=== PATIENT | female | born 1990 | race Two or more races ===

== ENCOUNTER 2018-11-16 16:46 | Inpatient (IN) | payer BC ==
--- NOTE | 2018-11-16 18:03 | US ---
EXAMINATION TYPE: US OB limited DATE OF EXAM: 11/16/2018 COMPARISON: NONE CLINICAL HISTORY: ROLAND level. ROLAND EXAM PERFORMED: Transabdominal (TA) No growth performed on today?s study per ordering physician ROLAND: 8.6 cm Normal HEART RATE: 154 bpm RHYTHM: Normal IMPRESSION: Amniotic Fluid index is within normal limits.
[2018-11-16 18:23] VITALS: BMI 25.3
[2018-11-17] MEDS ORDERED: CARBOPROST TROMETHAMINE 250 MCG/ML 1 ML AMP IM PRN (00:12)
[2018-11-17] MEDS ORDERED: LIDOCAINE 0.5% (PF) 5 MG/ML (50 ML SDV) SQ PRN (00:12)
[2018-11-17] MEDS ORDERED: OXYTOCIN 10 UNIT/ML 1 ML VIAL IM PRN (00:12)
[2018-11-17] MEDS ORDERED: TERBUTALINE 1 MG/ML VIAL SQ PRN (00:12)
[2018-11-17] MEDS ORDERED: METHYLERGONOVINE 0.2 MG/ML 1 ML AMP IM PRN (00:12)
[2018-11-17 01:03] LABS: Basophils % (A) 0 %; Eosinophils # (A) 0.1 k/uL (0-0.7); Eosinophils % (A) 1 %; HCT 42.1 % (34.0-46.0); HGB 14.1 gm/dL (11.4-16.0); Lymphocytes # (A) 1.8 k/uL (1.0-4.8); Lymphocytes % (A) 19 %; MCH 29.8 pg (25.0-35.0); MCHC 33.4 g/dL (31.0-37.0); MCV 89.3 fL (80.0-100.0); Mean Platelet Volume 10.4; Monocytes # (A) 0.8 k/uL (0-1.0); Monocytes % (A) 9 %; Neutrophils # (A) 6.4 k/uL (1.3-7.7); Neutrophils % (A) 70 %; Platelet Count 160 k/uL (150-450); RBC 4.71 m/uL (3.80-5.40); RDW 13.5 % (11.5-15.5); WBC 9.2 k/uL (3.8-10.6)
[2018-11-17 01:36] LABS: Anisocytosis (M) Present; Large Platelets Present; Poikilocytosis (M) Present
[2018-11-17] MEDS: LACTATED RINGERS 1,000 ML IV SCH ×2 (05:47→16:06)
[2018-11-17] MEDS ORDERED: OXYTOCIN 30 UNITS/500 ML NS 30 UNIT in SALINE 1 500ML.BAG IV SCH (06:00)
[2018-11-17] MEDS ORDERED: ROPIVACAINE 5MG/ML 20ML VIAL ONE (13:20)
[2018-11-17] MEDS ORDERED: fentaNYL (PF) 50 MCG/ML 5 ML AMP ONE (13:20)
[2018-11-17] MEDS ORDERED: SODIUM CHLORIDE 0.9% 100 ML BAG ONE (13:20)
--- NOTE | 2018-11-17 18:45 | P.HPOB ---
History of Present Illness H&P Date: 11/16/18 Chief Complaint: Variable decelerations of the fetus on heart monitor 28-year-old presents at 40 weeks to my office for a routine exam. On the NST in the office the baseline was 135-140 with moderate variability but she did have 2 variable decelerations lasting about 20 seconds onto 90 with good return to baseline. Sent over to the hospital for an amniotic fluid index and prolonged monitoring. The ROLAND was 8.5 cm and she continued to have some speculum variables. She was kept overnight for monitoring and did have a 3 minute deceleration around 11 PM. Informed consent was obtained and induction of labor was started. Cervix was 3 cm dilated, 80% effaced, and -1 station. Review of Systems All systems: negative Constitutional: Denies chills, Denies fever Eyes: denies blurred vision, denies pain Ears, nose, mouth and throat: Denies headache, Denies sore throat Cardiovascular: Denies chest pain, Denies shortness of breath Respiratory: Denies cough Gastrointestinal: Denies abdominal pain, Denies diarrhea, Denies nausea, Denies vomiting Genitourinary: Denies dysuria, Denies hematuria Musculoskeletal: Denies myalgias Integumentary: Denies pruritus, Denies rash Neurological: Denies numbness, Denies weakness Psychiatric: Denies anxiety, Denies depression Endocrine: Denies fatigue, Denies weight change Past Medical History Past Medical History: No Reported History Additional Past Medical History / Comment(s): Obstetric history: This is her first and she's had care with me since 11 weeks gestation. Blood type O positive, and was negative, rubella immune, RPR nonreactive, hepatitis B negative, HIV nonreactive. Normal anatomy ultrasound, abnormal 1 hour but a normal three-hour GTT. GBS negative. History of Any Multi-Drug Resistant Organisms: None Reported Past Surgical History: No Surgical Hx Reported Past Anesthesia/Blood Transfusion Reactions: No Reported Reaction Past Psychological History: No Psychological Hx Reported Smoking Status: Never smoker - Past Family History Mother Family Medical History: Hyperlipidemia, Hypertension Medications and Allergies Home Medications Medication Instructions Recorded Confirmed Type No Known Home Medications 11/16/18 11/16/18 History Allergies Allergy/AdvReac Type Severity Reaction Status Date / Time No Known Allergies Allergy Verified 11/16/18 16:54 Exam Osteopathic Statement: *. No significant issues noted on an osteopathic structural exam other than those noted in the History and Physical/Consult. Intake and Output 11/17/18 11/17/18 11/17/18 06:59 14:59 22:59 Intake Total 1400 Balance 1400 Intake: Intake, IV Titration 1400 Amount Lactated Ringers 1,000 ml 1400 @ 125 mls/hr IV .Q8H [place] Rx#:[id number] Other: # Voids 2 Heart: Regular rate and rhythm Lungs: Clear to auscultation bilaterally Abdomen: Soft, nontender Extremities: Negative Homans sign Results Result Diagrams: 11/16/18 23:45 Assessment and Plan (1) Normal labor Current Visit: Yes Status: Acute Code(s): O80 - ENCOUNTER FOR FULL-TERM UNCOMPLICATED DELIVERY; Z37.9 - OUTCOME OF DELIVERY, UNSPECIFIED SNOMED Code(s ): 83226252 Plan: 1. Induction of labor with amniotomy and Pitocin 2. Anticipate normal vaginal delivery 3. Continuous monitoring
[2018-11-17] MEDS ORDERED: diphenhydrAMINE 25 MG CAP PO PRN (21:12)
[2018-11-17] MEDS ORDERED: SIMETHICONE 80 MG CHEWABLE PO PRN (21:12)
[2018-11-17] MEDS ORDERED: WITCH HAZEL 1 EACH MED..PAD TOPICAL PRN (21:12)
[2018-11-17] MEDS ORDERED: ZOLPIDEM 5 MG TAB PO PRN (21:12)
[2018-11-17] MEDS ORDERED: BENZOCAINE/MENTHOL SPRAY 1 GM/SPRAY AEROSOL TOPICAL PRN (21:12)
[2018-11-17] MEDS ORDERED: diphenhydrAMINE 50 MG CAP PO PRN (21:12)
[2018-11-17] MEDS ORDERED: ACETAMINOPHEN TAB 325 MG TAB PO PRN (21:12)
[2018-11-17] MEDS ORDERED: HYDROCORTISONE 2.5% RECTAL CREAM 30 GM TUBE RECTAL PRN (21:12)
[2018-11-17] MEDS ORDERED: diphenhydrAMINE 50 MG/ML 1 ML VIAL IVP PRN ×2 (21:12)
[2018-11-17] MEDS ORDERED: LANOLIN CREAM 5 GM TUBE TOPICAL PRN (21:12)
[2018-11-17] MEDS ORDERED: OXYTOCIN 20 UNITS/1000 ML NS 1,000 ML IV SCH (21:15)
[2018-11-18] MEDS: IBUPROFEN 600 MG TAB PO PRN ×2 (00:06→16:55)
[2018-11-18] MEDS: SENNOSIDES-DOCUSATE SODIUM 1 EACH TAB PO SCH ×2 (09:56→20:16)
[2018-11-18] MEDS: LACTATED RINGERS 1,000 ML IV SCH (21:02)
[2018-11-19] MEDS: IBUPROFEN 600 MG TAB PO PRN ×3 (00:14→19:33)
[2018-11-19] MEDS: SENNOSIDES-DOCUSATE SODIUM 1 EACH TAB PO SCH ×2 (11:40→21:40)
--- NOTE | 2018-11-19 11:44 | P.PROBDLV ---
Vaginal Delivery Note - . Vaginal Delivery Note: 28-year-old presented at 40 weeks for induction of labor. Her cervix was 37 m dilated, 70% effaced, and -1 station. She was carlos irregularly but not feeling them. heart tones 130-135 with moderate variability and reactive. Pitocin was started. Amniotomy was performed at 7:43 AM and clear fluid noted. When she was very uncomfortable she did get an epidural. Her cervix was completely dilated at 1926. She pushed, delivered a viable male over midline episiotomy under epidural anesthesia at 2052. Head delivered OA, nuchal cord 1 easily reduced, anterior shoulder delivered gentle downward guidance followed by posterior shoulder and rest of body. Nose and mouth bulb suctioned, cord clamped and cut, infant placed on mother's abdomen. Apgars 8, 9, weight 7 lbs. 1 oz. Placenta delivered spontaneously, intact with three-vessel cord at 2054. Vagina, cervix, and perineum were inspected. Second -degree midline episiotomy was repaired with 2-0 Vicryl and 3-0 Vicryl. Estimated blood loss 150 mL.
--- NOTE | 2018-11-19 11:45 | P.PNOBGVD ---
Subjective - Subjective Principal diagnosis: Status post normal vaginal delivery day #1 Interval history: Patient seen and examined. Denies nausea, vomiting, chest pain, shortness of breath or calf pain. She's having some difficulty with breast-feeding but using a nipple shield and doing better with this. Patient reports: Reports appetite normal, Reports voiding normally, Reports pain well controlled, Reports ambulating normally : doing well Objective - Latest Vital Signs Latest vital signs: Vital Signs Temp Pulse Resp BP Pulse Ox 11/19/18 08:00 98.4 F 86 18 116/80 99 11/19/18 00:00 97.9 F 81 16 115/83 11/18/18 20:00 98.0 F 68 16 120/80 11/18/18 16:00 98.3 F 78 18 111/70 99 11/18/18 12:00 98.4 F 78 18 112/78 Intake and Output 11/18/18 11/19/18 11/19/18 22:59 06:59 14:59 Other: # Voids 2 2 - Exam Lungs: bilateral: normal Chest: Normal S1, Normal S2 Extremities: Present: normal Abdomen: Present: normal appearance, soft Uterus: Present: normal, firm Assessment and Plan (1) Normal labor Current Visit: Yes Status: Resolved Code(s): O80 - ENCOUNTER FOR FULL-TERM UNCOMPLICATED DELIVERY; Z37.9 - OUTCOME OF DELIVERY, UNSPECIFIED SNOMED Code(s ): 21135080 (2) Status post normal vaginal delivery Current Visit: Yes Status: Acute Code(s): EFR5143 - SNOMED Code(s): 111739344 Plan: 1. Continue care
--- NOTE | 2018-11-19 11:47 | P.DS ---
Providers Date of admission: 11/17/18 00:12 Expected date of discharge: 11/19/18 Attending physician: Sandra Tiwari Primary care physician: Stated None - Discharge Diagnosis(es) (1) Normal labor Current Visit: Yes Status: Resolved (2) Status post normal vaginal delivery Current Visit: Yes Status: Acute Hospital Course: Patient presented for induction of labor after some variable decelerations in the office and in observation overnight. She underwent a normal vaginal delivery. Her course was uncomplicated. She will be discharged home post day #2 in stable condition to follow-up with me in 6 weeks. Plan - Discharge Summary New Discharge Prescriptions: New Ibuprofen [Motrin] 600 mg PO Q6HR PRN #30 tab PRN Reason: Mild Pain Or Fever >= 100.5 Sennosides-Docusate Sodium [Senokot-S] 2 each PO BID@799,1999 #40 tab Discharge Medication List Ibuprofen [Motrin] 600 mg PO Q6HR PRN #30 tab 11/19/18 [Rx] Sennosides-Docusate Sodium [Senokot-S] 2 each PO BID@ #40 tab 11/19/18 [Rx] Follow up Appointment(s)/Referral(s): Sandra Tiwari DO [Doctor of Osteopathic Medicine] - 6 Weeks Discharge Disposition: HOME SELF-CARE
[2018-11-19 17:30] VITALS: RESP 16
[2018-11-19 21:43] VITALS: BP 115/70; PULSE 78; TEMP 98
== END 2018-11-19 22:10 | disposition home or self-care (01) | DRG 807 ==
LOC: FBPOP 16:46 → 4FBP 17:56 → OBSVTOIN 11-17 00:12
PROVIDERS: ADMIT Obstetrics & Gynecology; ATTEND Obstetrics & Gynecology
PROC: 10E0XZZ Delivery of Products of Conception, External Approach (ICD-10-PCS; principal; 2018-11-17)
PROC: 0W8NXZZ Division of Female Perineum, External Approach (ICD-10-PCS; 2018-11-17)
PROC: 00HU33Z Insertion of Infusion Device into Spinal Canal, Percutaneous Approach (ICD-10-PCS; 2018-11-17)
PROC: 3E0R3BZ Introduction of Anesthetic Agent into Spinal Canal, Percutaneous Approach (ICD-10-PCS; 2018-11-17)
DX: O69.81X0 Labor and delivery complicated by cord around neck, without compression, not applicable or unspecified (principal); Z37.0 Single live birth; O76 Abnormality in fetal heart rate and rhythm complicating labor and delivery; Z3A.40 40 weeks gestation of pregnancy; Z82.49 Family history of ischemic heart disease and other diseases of the circulatory system
CPT/HCPCS: 59025; 76815; 85025; 86850; 86900; 86901

== ENCOUNTER → 2020-12-31 | Outpatient (CLI) | payer BC ==
[2021-01-01 00:52] LABS: HCT 37.6 % (37.2-46.3); HGB 12.4 g/dL (12.0-15.0); MCV 88.1 fL (80.0-97.0); Mean Platelet Volume 13.4 fL (9.5-12.2); Platelet Count 137 X 10*3/uL (140-440); RBC 4.27 X 10*6/uL (4.10-5.20); RDW 12.9 % (11.5-14.5); WBC 7.03 X 10*3/uL (4.50-10.00)
[2021-01-01 04:07] LABS: African American GFR (CKD) 113.1 (60.0-200.0); Non-African American GFR(CKD) 97.6 (60.0-200.0)
[2021-01-01 04:15] LABS: T4, Free (Free Thyroxine) 1.2 ng/dL (0.80-1.80)
[2021-01-01 04:16] LABS: T3, Uptake 23 % (23-37)
[2021-01-01 06:05] LABS: HIV 2 AB Non-Reactive (Non-Reactive); HIV AB P24 Non-Reactive (Non-Reactive); HIV P24 AG Non-Reactive (Non-Reactive)
[2021-01-01 11:57] LABS: Hepatitis B Surface Antigen Non-Reactive (Non-Reactive)
[2021-01-02 07:43] LABS: Toxoplasma Antibody (IgG) <3.0 IU/mL (<7.2); Toxoplasma Antibody (IgM) <3.0 AU/mL (<8.0)
== END | disposition home or self-care (01) ==
LOC: LABWHC1 15:47
PROVIDERS: ATTEND Obstetrics & Gynecology
DX: Z34.81 Encounter for supervision of other normal pregnancy, first trimester (principal); Z3A.00 Weeks of gestation of pregnancy not specified
CPT/HCPCS: 36415; 82565; 82947; 84439; 84443; 84479; 85027; 86762; 86777; 86778; 86780; 86850; 86900; 86901; 87340; 87390

== ENCOUNTER → 2021-01-15 | Outpatient (CLI) | payer BC ==
--- NOTE | 2021-01-16 11:24 | US ---
EXAMINATION TYPE: Ultrasound OB <= 14 week fetus DATE OF EXAM: 01/15/2021 4:34 PM COMPARISON: NONE CLINICAL HISTORY: 30-year-old female Z36 confirm dates. EXAM PERFORMED: Transabdominal FINDINGS: EXAM MEASUREMENTS: GESTATIONAL AGE / DATING Physician Established: Not yet established Dates by LMP: (13 weeks/4 days) EDC: 07/19/21 Dates by First Scan: No previous this is first scan Dates by Current Scan for: (14 weeks/1 days) EDC: 07/15/21 MATERNAL ANATOMY Uterus: 11.5 x 8.0 x 10.7cm Right Ovary: obscured by bowel and the increased uterine size Left Ovary: obscured by bowel and the increased uterine size Post CDS / Adnexa: wnl Presence of free fluid: no GESTATION / SURVEY CRL: 8.0cm (14 weeks/ 1 days) Yolk Sac (normal less than 6mm): not visualized Heart Rate: 150 bpm Rhythm: Normal IUP: Viable IUP Date of LMP: 10-12-20 IMPRESSION: 1. Single live intrauterine with estimated gestational age of 13 weeks 4 days by LMP. Curre nt ultrasound biometry is 4 days larger (14 weeks 1 day). 2. Neither ovary could be visualized. 3. Complete survey recommended at 18-20 weeks.
== END | disposition home or self-care (01) ==
LOC: RADUSWWP 16:14
PROVIDERS: ATTEND Obstetrics & Gynecology
DX: Z36.87 Encounter for antenatal screening for uncertain dates (principal); Z3A.13 13 weeks gestation of pregnancy
CPT/HCPCS: 76801

== ENCOUNTER 2021-07-16 23:35 | Inpatient (IN) | payer BC ==
[2021-07-16] MEDS ORDERED: OXYTOCIN 10 UNIT/ML 1 ML VIAL IM PRN (23:44)
[2021-07-16] MEDS ORDERED: LIDOCAINE 0.5% (PF) 5 MG/ML (50 ML SDV) SQ PRN (23:44)
[2021-07-16] MEDS ORDERED: CARBOPROST TROMETHAMINE 250 MCG/ML 1 ML AMP IM PRN (23:44)
[2021-07-16] MEDS ORDERED: TERBUTALINE 1 MG/ML VIAL SQ PRN (23:44)
[2021-07-16] MEDS ORDERED: METHYLERGONOVINE 0.2 MG/ML 1 ML AMP IM PRN (23:44)
[2021-07-16] MEDS ORDERED: LACTATED RINGERS 1,000 ML IV SCH (23:45)
[2021-07-16] MEDS ORDERED: OXYTOCIN 30 UNITS/500 ML NS 30 UNIT in SALINE 1 500ML.BAG IV SCH (23:45)
--- NOTE | 2021-07-17 00:56 | P.HPOB ---
History of Present Illness H&P Date: 07/17/21 Chief Complaint: Contractions This is a 30-year-old female 2 para 1 at 39-5/7 weeks with an estimated date of confinement of 07/19/2021 who presented with complaints of contractions since approximately 7 PM. She denies any rupture of membranes. care has been with Dr. Tiwari and has been essentially uncomplicated. She did have slightly low platelets at 117,000 at her last check. She states this did happen with her last also. labs: Hepatitis B surface antigen-negative nonreactive Rubella-immune HIV-nonreactive Syphilis antibody-negative nonreactive Blood type-O+ Antibody screen-negative Toxoplasma screen-negative Random glucose-95 Hemoglobin-12.4 One hour Glucola-78 GC/Chlamydia/Trichomonas-negative Group B streptococcus-negative Obstetrical history: . History of 1 vaginal delivery at term with no complications. Social history: She is and works as a speech therapist. Review of Systems Constitutional: Denies chills, Denies fever Eyes: denies blurred vision, denies pain Ears, nose, mouth and throat: Denies headache, Denies sore throat Cardiovascular: Denies chest pain, Denies shortness of breath Respiratory: Denies cough Gastrointestinal: Reports abdominal pain Genitourinary: Reports pelvic pain, Reports Musculoskeletal: Denies myalgias Integumentary: Denies pruritus, Denies rash Neurological: Denies numbness, Denies weakness Psychiatric: Denies anxiety, Denies depression Past Medical History Past Medical History: No Reported History History of Any Multi-Drug Resistant Organisms: None Reported Past Surgical History: Appendectomy Past Anesthesia/Blood Transfusion Reactions: No Reported Reaction Past Psychological History: No Psychological Hx Reported Smoking Status: Never smoker Past Alcohol Use History: None Reported Past Drug Use History: None Reported - Past Family History Mother Family Medical History: Hyperlipidemia, Hypertension Medications and Allergies Home Medications Medication Instructions Recorded Confirmed Type Pnv No.95/Ferrous Fum/Folic AC 1 tab PO DAILY 07/16/21 07/16/21 History [ Multivitamin Tablet] Allergies Allergy/AdvReac Type Severity Reaction Status Date / Time Iodinated Contrast Media Allergy Unknown Verified 07/16/21 23:42 Exam Osteopathic Statement: *. No significant issues noted on an osteopathic structural exam other than those noted in the History and Physical/Consult. Intake and Output 07/16/21 07/16/21 07/17/21 14:59 22:59 06:59 Other: Weight 63.503 kg Gen.: Well-developed well-nourished female in distress due to labor HEENT: Within normal limits Heart: Regular rate and rhythm Lungs: Clear to auscultation bilaterally Abdomen: Cervix: Anterior lip with bulging bag. Artificial rupture membranes is carried out with clear fluid noted heart tones: Reactive with variable decelerations during contractions Contractions: Every 1-2 minutes Extremities: Negative Homans Assessment and Plan (1) 39 weeks gestation of Current Visit: Yes Status: Acute Code(s): Z3A.39 - 39 WEEKS GESTATION OF SNOMED Code(s): 78509614 Plan: Admit for eminent delivery. Expectant management.
[2021-07-17 01:08] LABS: Basophils % (A) 0 %; Eosinophils % (A) 0 %; HCT 37.5 % (34.0-46.0); HGB 12.3 gm/dL (11.4-16.0); Lymphocytes % (A) 16 %; MCH 28.9 pg (25.0-35.0); MCHC 32.8 g/dL (31.0-37.0); MCV 88.3 fL (80.0-100.0); Mean Platelet Volume 11.4; Monocytes # (A) 0.7 k/uL (0-1.0); Monocytes % (A) 6 %; Neutrophils # (A) 9.8 k/uL (1.3-7.7); Neutrophils % (A) 76 %; Platelet Count 159 k/uL (150-450); RBC 4.25 m/uL (3.80-5.40); RDW 13.5 % (11.5-15.5); WBC 12.8 k/uL (3.8-10.6)
[2021-07-17] MEDS ORDERED: BENZOCAINE/MENTHOL SPRAY 1 GM/SPRAY AEROSOL TOPICAL PRN (01:09)
[2021-07-17] MEDS ORDERED: OXYTOCIN 30 UNITS/500 ML NS 30 UNIT in SALINE 1 500ML.BAG IV SCH (01:09)
[2021-07-17] MEDS ORDERED: LANOLIN CREAM 5 GM TUBE TOPICAL PRN (01:09)
[2021-07-17] MEDS ORDERED: diphenhydrAMINE 50 MG/ML 1 ML VIAL IVP PRN ×2 (01:09)
[2021-07-17] MEDS ORDERED: ZOLPIDEM 5 MG TAB PO PRN (01:09)
[2021-07-17] MEDS ORDERED: SIMETHICONE 80 MG CHEWABLE PO PRN (01:09)
[2021-07-17] MEDS ORDERED: diphenhydrAMINE 25 MG CAP PO PRN (01:09)
[2021-07-17] MEDS ORDERED: ACETAMINOPHEN TAB 325 MG TAB PO PRN (01:09)
[2021-07-17] MEDS ORDERED: HYDROCORTISONE 2.5% RECTAL CREAM 30 GM TUBE RECTAL PRN (01:09)
[2021-07-17] MEDS ORDERED: diphenhydrAMINE 50 MG CAP PO PRN (01:09)
--- NOTE | 2021-07-17 01:10 | P.PROBDLV ---
Vaginal Delivery Note - . Vaginal Delivery Note: Upon my arrival, the patient was feeling pressure to push. Cervix is noted to be complete with bulging bag. Artificial rupture membranes is carried out with clear fluid noted. She then began pushing. Infant's head came to a crown. With one further push, the 's head delivered across the perineum followed by the anterior shoulder. Nose and mouth were bulb suctioned. With one further push, the remainder the easily delivered and was placed on mother's abdomen. Cord was clamped and cut and infant was taken to warmer for evaluation. A viable male was noted with scores of 8 at 1 minute and 9 at 5 minutes and weight of 7 pounds 3.5 ounces. Placenta delivered shortly thereafter, intact, with a three-vessel cord. Uterus contracted initially fairly well after oxytocin was given and uterine massage was carried out. Inspection of the perineum revealed a second-degree perineal laceration and a midline periurethral laceration. These areas were anesthetized with 1% lidocaine. The second-degree perineal laceration was repaired with 3-0 Vicryl suture in the usual multilayer fashion. The periurethral laceration was sutured with 2-0 Vicryl suture in a running locked fashion. Several clots were then removed from the vagina and uterus was explored with a gloved hand. No further tissue was obtained and after blood clots were removed the uterus was firm. Estimated blood loss is approximately 200 mL's. Mother and are in stable condition.
[2021-07-17] MEDS: IBUPROFEN 600 MG TAB PO PRN ×2 (01:14→08:22)
[2021-07-17 01:31] VITALS: RESP 16
[2021-07-17] MEDS: SENNOSIDES-DOCUSATE SODIUM 1 EACH TAB PO SCH ×2 (07:37→08:22)
[2021-07-17] MEDS: PRENATAL VIT-IRON-FOLIC ACID 1 EACH CAP PO SCH (08:23)
[2021-07-17] MEDS ORDERED: INFLUENZA VACC (6 MOS-64 YRS) 60 MCG/0.5 ML SYRINGE IM ONE (09:00)
[2021-07-18] MEDS: SENNOSIDES-DOCUSATE SODIUM 1 EACH TAB PO SCH ×2 (01:53→08:08)
--- NOTE | 2021-07-18 06:52 | P.PNOBGVD ---
Subjective - Subjective Patient reports: Reports appetite normal, Reports voiding normally, Reports pain well controlled, Reports ambulating normally : doing well Objective - Latest Vital Signs Latest vital signs: Vital Signs Temp Pulse Resp BP Pulse Ox 07/18/21 00:00 98.5 F 97 16 105/69 07/17/21 16:00 98.2 F 62 16 118/72 07/17/21 12:00 98.5 F 78 16 109/71 07/17/21 08:00 98.6 F 67 16 107/70 99 Intake and Output 07/17/21 07/17/21 07/18/21 14:59 22:59 06:59 Other: Voiding Method Toilet # Voids 1 1 2 - Exam Lungs: bilateral: normal Chest: Normal S1, Normal S2 Extremities: Present: normal Abdomen: Present: normal appearance, soft Uterus: Present: normal, firm Assessment and Plan Assessment: day #1. Patient is resting without complaints and wishes to go home. Vital signs are stable and she is afebrile. Uterus is firm nontender and she is having normal lochia. My impression this is a normal course. Plan is to continue routine care discharge home later today. (1) 39 weeks gestation of Current Visit: Yes Status: Acute Code(s): Z3A.39 - 39 WEEKS GESTATION OF SNOMED Code(s): 80021503 (2) Status post normal vaginal delivery Current Visit: No Status: Acute Code(s): EMK3762 - SNOMED Code(s): 894962129
--- NOTE | 2021-07-18 06:56 | P.DS ---
Providers Date of admission: 07/16/21 23:42 Expected date of discharge: 07/18/21 Attending physician: Sandra Tiwari Primary care physician: Sandra Tiwari - Discharge Diagnosis(es) (1) 39 weeks gestation of Current Visit: Yes Status: Acute (2) Status post normal vaginal delivery Current Visit: No Status: Acute Hospital Course: Please see dictated H&P and delivery note per Dr. Romero. Brief summary this is a 30-year-old 2 para 1 female 39-5/7 weeks gestation admitted to labor and delivery in active labor. Patient quickly goes on to have a vaginal delivery viable male . Please see dictated delivery note. day #1 patient is without complaints and wishes to go home. Patient's felt be stable for discharge home follow up with Dr. Tiwari 6 weeks. Procedures: Normal spontaneous vaginal delivery Patient Condition at Discharge: Good Plan - Discharge Summary New Discharge Prescriptions: New Ibuprofen [Motrin] 600 mg PO Q6HR PRN #30 tab PRN Reason: Pain No Action Pnv No.95/Ferrous Fum/Folic AC [ Multivitamin Tablet] 1 tab PO DAILY Discharge Medication List Pnv No.95/Ferrous Fum/Folic AC [ Multivitamin Tablet] 1 tab PO DAILY 07/16/21 [History] Ibuprofen [Motrin] 600 mg PO Q6HR PRN #30 tab 07/18/21 [Rx] Follow up Appointment(s)/Referral(s): Sandra Tiwari DO [Primary Care Provider] - 08/25/21 11:15 am Patient Instructions/Handouts: Vaginal Delivery (DC) Activity/Diet/Wound Care/Special Instructions: No intercourse or anything per vagina for 6 weeks. Please call if any fever, chills, excessive vaginal bleeding, and/or abdominal pain. Discharge Disposition: HOME SELF-CARE
[2021-07-18] MEDS: PRENATAL VIT-IRON-FOLIC ACID 1 EACH CAP PO SCH (08:28)
[2021-07-18 09:19] LABS: Basophils % (A) 0 %; Eosinophils # (A) 0.1 k/uL (0-0.7); Eosinophils % (A) 1 %; HCT 33.2 % (34.0-46.0); HGB 10.8 gm/dL (11.4-16.0); Lymphocytes # (A) 1.4 k/uL (1.0-4.8); Lymphocytes % (A) 18 %; MCH 29.2 pg (25.0-35.0); MCHC 32.6 g/dL (31.0-37.0); MCV 89.8 fL (80.0-100.0); Monocytes # (A) 0.4 k/uL (0-1.0); Monocytes % (A) 5 %; Neutrophils % (A) 75 %; Platelet Count 117 k/uL (150-450); RBC 3.69 m/uL (3.80-5.40); RDW 13.7 % (11.5-15.5); WBC 7.9 k/uL (3.8-10.6)
[2021-07-18 16:22] VITALS: BP 112/70; PULSE 77; TEMP 98.1
== END 2021-07-18 18:40 | disposition home or self-care (01) | DRG 807 ==
LOC: FBPOP 23:35 → 4FBP 23:42
PROVIDERS: ADMIT Obstetrics & Gynecology; ATTEND Obstetrics & Gynecology
PROC: 10907ZC Drainage of Amniotic Fluid, Therapeutic from Products of Conception, Via Natural or Artificial Opening (ICD-10-PCS; principal; 2021-07-17)
PROC: 10E0XZZ Delivery of Products of Conception, External Approach (ICD-10-PCS; principal; 2021-07-17)
PROC: 0KQM0ZZ Repair Perineum Muscle, Open Approach (ICD-10-PCS; principal; 2021-07-17)
DX: O99.12 Other diseases of the blood and blood-forming organs and certain disorders involving the immune mechanism complicating childbirth (principal); Z37.0 Single live birth; D69.6 Thrombocytopenia, unspecified; O70.1 Second degree perineal laceration during delivery; O71.82 Other specified trauma to perineum and vulva; Z3A.39 39 weeks gestation of pregnancy; Z82.49 Family history of ischemic heart disease and other diseases of the circulatory system; Z91.041 Radiographic dye allergy status; Z90.49 Acquired absence of other specified parts of digestive tract
CPT/HCPCS: 59025; 85025; 86850; 86900; 86901; 90471; 90686; 99213